=== PATIENT | male | born 1970 | race Caucasian/White ===

== ENCOUNTER 2021-03-04 21:49 | Emergency (ER) | payer BC ==
[~2021-03-04] VITALS: Ht 185.4 cm; Wt 150.0 kg
[~2021-03-04 21:49] MED LIST: ASPIRIN 81M81 MG/TA2 PO; NO HOME MEDICATIONS; PROTONIX40 MG/Pack PO
[2021-03-04 22:31] LABS: BASO # 0.1 K/mm3 (0.0-0.2); BASO % 0.5 % (0.0-2.0); EOS # 0.1 K/mm3 (0.0-0.7); EOS % 0.9 % (0.0-4.0); GRAN # 7.6 K/mm3 (1.4-6.5); GRAN % 64.5 % (42.2-75.2); HEMATOCRIT 42.5 % (42.0-52.0); HEMOGLOBIN 14.1 g/dl (13.5-18.0); LYMPH # 3.2 K/mm3 (1.2-3.4); LYMPH % 27.4 % (20.0-51.0); MEAN CELL VOLUME 80 fl (80.0-100.0); MEAN CORPUSCULAR HEMOGLOBIN 27 pg (27-31); MEAN CORPUSCULAR HGB CONC 33 g/dl (33.0-37.0); MEAN PLATELET VOLUME 9.4 fl (7.4-10.4); MONO # 0.8 K/mm3 (0.1-0.6); MONO % 6.4 % (1.7-9.3); PLATELET COUNT 302 K/mm3 (130-400); REDCELL DISTRIBUTION WIDTH-CV 14.3 % (11.5-14.5)
[2021-03-04 23:04] LABS: ANION GAP 8 mmol/L (7-16); BLOOD UREA NITROGEN 13 mg/dL (9-21); CALCIUM 9.1 mg/dL (8.4-10.2); CARBON DIOXIDE 25 mmol/L (22-29); CHLORIDE 104 mmol/L (98-107); GLUCOSE 99 mg/dL (70-99); LIPASE < 10 U/L (8-78); SODIUM 137 mmol/L (136-145)
[2021-03-04 23:10] LABS: TROPONIN-I < 0.010 ng/mL (0.00-0.033)
[2021-03-05 01:13] VITALS: BP 148/93; PULSE 74; TEMP 97.5
== END 2021-03-05 01:13 | disposition home or self-care (01) ==
LOC: COL.ER 21:49
PROVIDERS: Emergency Medicine
DX: I10 Essential (primary) hypertension (principal)